=== PATIENT | male | born 1945 | race African-American/Black ===

== ENCOUNTER 2021-10-15 09:52 | Emergency (ER) | payer MEDICARE, OTHER ==
[~2021-10-15] VITALS: Ht 185.4 cm; Wt 77.0 kg
[~2021-10-15 09:52] MED LIST: DIAZ10TA4 PO; DIGO125T PO; HYDR-3933 PO; LOSA1TAB37 PO; PARO-41 PO
[2021-10-15 12:15] LABS: HEMATOCRIT. 35.1 % (42.0-52.0); HEMOGLOBIN. 11.4 g/dL (14.0-18.0); MEAN CORPUSCULAR HEMOGLOBIN 32.6 pg (28.0-32.0); MEAN CORPUSCULAR VOLUME 100.1 fL (80.0-94.0); MEAN PLATELET VOLUME 11.4 fl (7.4-10.4); PLATELET 224 x1000/uL (130-400); RED BLOOD CELL COUNT 3.51 mill/uL (4.7-6.1); RED CELL DISTRIBUTION WIDTH 16.6 % (11.6-14.6)
[2021-10-15 12:17] LABS: CHLORIDE 96 mEq/L (98-107); PROTHROMBIN TIME 10.9 sec (9.6-11.0)
[2021-10-15] MEDS ORDERED: VANCOMYCIN 1G PREMIX 200 ML IV ONE (12:45)
[2021-10-15] MEDS: PIPERACILLIN/TAZ 3.375G PREMIX 50 ML IV ONE (13:17)
[2021-10-15] MEDS: SODIUM CHLORIDE 0.9% 1,000 ML IV ONE (13:17)
[2021-10-15] MEDS: DILTIAZEM HCL 60MG TABLET PO ONE (13:35)
[2021-10-15 13:48] LABS: PLATELET ESTIMATE NORMAL
[2021-10-15 14:40] VITALS: BP 123/93
== END 2021-10-15 15:25 | disposition left against medical advice (07) ==
LOC: ER 09:52 → EDBEDREQ 11:28 → EDBEDREQTM 11:28 → EDBEDREQSVC 11:28 → ER 15:25 → CANBEDREQ 17:53
DX: R62.7 Adult failure to thrive (principal); I11.9 Hypertensive heart disease without heart failure; Z68.22 Body mass index [BMI] 22.0-22.9, adult; Z20.822 Contact with and (suspected) exposure to COVID-19
CPT/HCPCS: 36415; 70450; 71045; 80053; 83605; 84145; 84484; 85025; 85610; 87040; 87426; 93005; 96365; 99291; C9803; J2543; J7030

== ENCOUNTER 2021-11-16 20:55 | Emergency (ER) | payer MEDICARE, OTHER ==
[~2021-11-16] VITALS: Ht 172.7 cm; Wt 74.0 kg
[2021-11-16] MEDS ORDERED: DIAZEPAM 2 MG TABLET PO ONE (22:00)
[2021-11-16] MEDS ORDERED: HYDROCODONE/ACETAMINOPHEN 5/325MG TABLET PO ONE (22:00)
[2021-11-16] MEDS ORDERED: METHOCARBAMOL 750MG TABLET PO SCH (22:00)
[2021-11-16] MEDS: LIDOCAINE 5% PATCH TOP SCH ×2 (22:00→23:07)
[2021-11-16] MEDS ORDERED: KETOROLAC 60MG/2ML VIAL IM ONE (22:00)
[2021-11-17] MEDS ORDERED: IBUP-2028 MT
[2021-11-17] MEDS ORDERED: LIDO1ADH23 TP
[2021-11-17] MEDS ORDERED: HYDR-4009 MT
[2021-11-17 05:26] VITALS: BP 121/58
== END 2021-11-17 10:05 | disposition home or self-care (01) ==
LOC: ER 20:55
DX: M16.0 Bilateral primary osteoarthritis of hip (principal); M54.50 Low back pain, unspecified; I11.0 Hypertensive heart disease with heart failure; I50.9 Heart failure, unspecified; Z87.891 Personal history of nicotine dependence
CPT/HCPCS: 73502; 73560; 96372; 99284; J1885